=== PATIENT | male | born 1995 ===

== ENCOUNTER 2023-08-21 08:30 | Outpatient (REF) | payer OTHER, SELFPAY ==
--- NOTE | ~2023-08-21 | US_ITS ---
EXAMINATION: ULTRASOUND EXTREMITY NONVASCULAR LIMITED CLINICAL INFORMATION: 1 cm mass right distal humerus COMPARISON: None available. TECHNIQUE: Real-time ultrasound of the palpable area in the distal right humerus was performed FINDINGS: There is a palpable finding in the right arm/distal humerus corresponds to a 1.5 x 0.6 x 1.3 cm well-circumscribed solid predominantly echogenic mass. There is no significant associated vascularity. This is nonspecific in appearance. This possibly represents a lipoma. US/US extremity nonvascular [place] IMPRESSION: Palpable finding in the right arm/distal humerus corresponds to a 1.5 cm well-circumscribed solid predominantly echogenic mass. This is nonspecific in appearance. This possibly represents a lipoma. Continued clinical surveillance and/or MRI scan could be obtained for further evaluation.
== END 2023-08-21 08:31 | disposition home or self-care (01) ==
LOC: HO.UMASIMG 08:30
PROVIDERS: Visit Provider Physician Assistant Medical
DX: R22.31 Localized swelling, mass and lump, right upper limb (principal); Z83.3 Family history of diabetes mellitus
CPT/HCPCS: 76882